=== PATIENT | female | born 1955 | race Two or more races ===

== ENCOUNTER 2016-12-17 21:46 | Observation (INO) | payer MEDICAID ==
[~2016-12-17] VITALS: Ht 149.9 cm; Wt 48.5 kg
[2016-12-17 22:53] LABS: Basophils # (auto) 0 uL; Basophils % (auto) 0.1 % (0.0-2.0); Eosinophils # (auto) 0 uL; Hematocrit 39.3 % (36.0-46.0); Hemoglobin 13.3 g/dL (12.2-16.2); Lymphocytes # (auto) 0.6 uL; Lymphocytes % (auto) 7.2 % (10.0-50.0); Mean Corpuscular Hemoglobin 30.9 pg (28.0-32.0); Mean Corpuscular Hgb Conc. 33.9 g/dL (32.0-36.0); Mean Corpuscular Volume 91.3 fL (80.0-100.0); Mean Platelet Volume 10.3 fL (7.4-10.4); Monocytes # (auto) 0.4 uL; Monocytes % (auto) 4.6 % (0.0-12.0); Neutrophils # (auto) 7.2 uL; Neutrophils % (auto) 88.1 % (37.0-80.0); Platelet Count (auto) 202 10^3/uL (140-450); Red Cell Distribution Width 13.3 % (11.6-16.0); SUSPECT VIEW TRANSMISSION; White Blood Cell 8.2 10^3/uL (4.4-10.8)
[2016-12-17 23:02] LABS: INR 1.11 (0.9-1.15); Partial Thromboplastin Time 27.5 sec (22.64-33.71); Prothrombin Time 11.4 sec (9.37-12.3)
[2016-12-17 23:06] LABS: Albumin 3.7 g/dL (3.4-5.0); Anion Gap 9 (5-15); Aspartate Aminotransferase 327 U/L (15-37); BUN/Creatinine Ratio 10.1; Blood Urea Nitrogen 7 mg/dL (7-18); Calcium 8.8 mg/dL (8.5-10.1); Carbon Dioxide 27 mmol/L (21-32); Chloride 105 mmol/L (98-107); GFR African American 111 mL/min; GFR Non-African American 92 mL/min; Glucose 143 mg/dL (74-106); Magnesium 2.2 mg/dL (1.6-2.6); Potassium 4.3 mmol/L (3.5-5.1); Sodium 141 mmol/L (136-145)
[2016-12-17 23:11] LABS: Alkaline Phosphatase 202 U/L (45-117); Bilirubin, Total 2.9 mg/dL (0.2-1.0); Total Protein 7.8 g/dL (6.4-8.2)
[2016-12-17 23:17] LABS: B-Type Natriuretic Peptide 15.66 pg/mL (0-100)
[2016-12-17 23:17] LABS: Urine Bilirubin Negative (Negative); Urine Blood Negative /uL (Negative); Urine Color Yellow (Yellow); Urine Glucose Normal (Normal); Urine Ketone Negative (Negative); Urine Nitrite Negative (Negative); Urine RBC <1 /hpf (0 - 4); Urine Squamous Epithelial Cell FEW /hpf (<5); Urine Urobilinogen Normal (Negative); Urine pH 7.5 (5.0-8.0)
[2016-12-17 23:33] LABS: Temperature: 23.1 C (20.0-25.0)
[2016-12-18] MEDS ORDERED: cefTRIAXone 1GM/50ML D5W 50 ML IV ONE (12:15)
[2016-12-18] MEDS ORDERED: metroNIDAZOLE 500MG/100ML 100 ML IV ONE (12:15)
[2016-12-18 14:40] LABS: Amylase 39 U/L (25-115)
[2016-12-18 15:55] VITALS: BP 151/90
== END 2016-12-18 16:00 | disposition short-term general hospital (02) | DRG 203 ==
LOC: ER 21:49 → OVERFLOW 12-18 03:13 → ER 12-18 16:00
PROVIDERS: ADMIT Emergency Medicine; ATTEND Emergency Medicine
DX: R07.89 Other chest pain (principal); K80.21 Calculus of gallbladder without cholecystitis with obstruction; I10 Essential (primary) hypertension; K80.51 Calculus of bile duct without cholangitis or cholecystitis with obstruction; E11.9 Type 2 diabetes mellitus without complications; R51 Headache; R74.8 Abnormal levels of other serum enzymes
CPT/HCPCS: 36415; 70450; 71020; 76705; 80053; 81001; 82150; 82962; 83690; 83735; 83880; 84443; 84484; 85025; 85610; 85730; 93005; 96365; 96367; 99285; G0378; J0696; J3490